=== PATIENT | female | born 1950 | race Caucasian/White ===

== ENCOUNTER → 2017-11-15 | Day surgery (SDC) | payer BC ==
[~2017-11-15] MED LIST: Lactated Ringers 1,000 ML IV SCH; Ondansetron 4 MG/2 ML SDV IV ONE; Propofol 200 MG/20 ML SDV IV ONE
--- NOTE | 2017-11-15 15:24 | OR ---
DATE OF OPERATION: 11/15/2017 PREOPERATIVE DIAGNOSIS: SCREENING COLONOSCOPY. POSTOPERATIVE DIAGNOSIS: SCREENING COLONOSCOPY. SURGEON: Kt Peter MD PROCEDURE: FULL-LENGTH COLONOSCOPY WITH POLYP REMOVAL X1. 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 COMPLICATIONS: None. SPECIMEN: Rectal polyp, likely hyperplastic. FINDINGS: 1. Full-length colonoscopy. 2. Small hyperplastic polyp in rectum. RECOMMENDATIONS: Follow up colonoscopy, pending path report. INDICATIONS: The patient was seen for routine physical. She is due for a screening colonoscopy. DESCRIPTION OF PROCEDURE: The patient was prepped and draped, placed in the left lateral decubitus position. A lubricated Olympus colonoscope was inserted and easily advanced to the cecum. Direct visualization of the ileocecal valve and appendiceal orifice was accomplished. The bowel prep was fine. Upon withdrawal of the scope, throughout the entire length of the right transverse and descending colon, no abnormalities were seen. The sigmoid colon showed no signs of any polyps, masses, ulcerations, or bleeding sites. No vascular abnormalities or signs of colitis. There were no diverticula. In the rectal vault, the patient had 1 small, flat, hyperplastic-appearing polyp removed in its entirety with forceps. The retroflexion of scope showed no anal lesions. Air was suctioned and scope was removed without complication. COOPER/NELA /[id number]
== END ==
LOC: CC.SDS 11:31
PROVIDERS: ATTEND Family Medicine
DX: Z12.11 Encounter for screening for malignant neoplasm of colon (principal); K62.1 Rectal polyp; F41.8 Other specified anxiety disorders; I10 Essential (primary) hypertension; E03.9 Hypothyroidism, unspecified; Z79.899 Other long term (current) drug therapy
CPT/HCPCS: 45380; J2405; J2704; J7120

== ENCOUNTER → 2022-03-09 | Day surgery (SDC) | payer MEDICARE ==
[~2022-03-09] MED LIST changes: +Midazolam 1 MG/ML 2 ML SDV ONE; -Ondansetron 4 MG/2 ML SDV IV ONE; -Propofol 200 MG/20 ML SDV IV ONE; +Propofol 200 MG/20 ML SDV ONE; +ePHEDrine 50 MG/ML SDV ONE; +fentaNYL 100 MCG/2 ML SDV ONE
== END ==
LOC: CC.SDS 08:43
PROVIDERS: ATTEND Family Medicine
DX: Z12.11 Encounter for screening for malignant neoplasm of colon (principal); F32.A Depression, unspecified; I10 Essential (primary) hypertension; E03.9 Hypothyroidism, unspecified; M81.0 Age-related osteoporosis without current pathological fracture; N32.81 Overactive bladder; E66.9 Obesity, unspecified; Z86.010 Personal history of colon polyps; Z79.899 Other long term (current) drug therapy; Z98.890 Other specified postprocedural states; Z68.38 Body mass index [BMI] 38.0-38.9, adult
CPT/HCPCS: 00812; J2250; J2704; J3010; J7120

== ENCOUNTER 2025-07-17 10:34 | Emergency (ER) | payer MEDICARE ==
[2025-07-17 10:51] LABS: APPEARANCE,URINE CLEAR (CLEAR); GLUCOSE,URINE NEGATIVE (NEGATIVE); OCCULT BLOOD,URINE TRACE-INTACT (NEGATIVE)
[2025-07-17 10:52] LABS: BASOPHILS ABSOLUTE AUTO 0.03 10^3/uL (0.00-0.50); BASOPHILS PERCENT AUTO 0.3 % (0-1); EOSINOPHILS ABSOLUTE AUTO 0.04 10^3/uL (0.00-1.50); EOSINOPHILS PERCENT AUTO 0.4 % (0-6); IMMATURE GRAN ABSOLUTE AUTO 0.01 10^3/uL (0.00-0.49); IMMATURE GRAN PERCENT AUTO 0.1 % (0.0-4.9); LYMPHOCYTES ABSOLUTE AUTO 1.13 10^3/uL (0.60-5.00); LYMPHOCYTES PERCENT AUTO 11.9 % (24-44); MONOCYTES ABSOLUTE AUTO 0.74 10^3/uL (0.00-1.50); MONOCYTES PERCENT AUTO 7.8 % (0-10); NEUTROPHILS ABSOLUTE AUTO 7.52 x10^3/uL (1.80-8.00); NEUTROPHILS PERCENT AUTO 79.5 % (41-71); PLATELET COUNT,PLT 163 10^3/uL (150-400); RED BLOOD CELL COUNT 4.31 x10^6/uL (4.00-5.50); WHITE BLOOD CELL COUNT,WBC 9.5 10^3/uL (4.0-11.0)
[2025-07-17 10:56] LABS: EPITHELIAL CELLS,URINE FEW /HPF (NOT SEEN)
[2025-07-17] MEDS: Ondansetron 4 MG/2 ML SDV IVPUSH PRN (11:02)
[2025-07-17 11:20] LABS: ALANINE AMINOTRANSFERASE,ALT 21.0 U/L (12-78); ASPARTATE AMNIOTRANSFERASE,AST 24.0 U/L (15-37); BILIRUBIN TOTAL 1.4 mg/dL (0.0-1.0); BLOOD UREA NITROGEN,BUN 32.0 mg/dL (7-18); CARBON DIOXIDE,CO2 23.0 mmol/L (21-32); CHLORIDE,CL 97.0 mEq/L (98-106); CREATININE 1.3 mg/dL (0.6-1.0); EST CRCL DRUG DOSING (CG) 30.48 mL/min; ESTIMATED GFR 43.0 mL/min (>=60); GLUCOSE RANDOM 94.0 mg/dL (75-99); POTASSIUM,K 3.7 mEq/L (3.5-5.0); PROTEIN TOTAL,TP 7.8 g/dL (6.4-8.2); SODIUM,NA 133.0 mEq/L (136-145)
[2025-07-17 11:21] LABS: TSH ULTRASENSITIVE 1.29 uIU/mL (0.36-5.60)
== END 2025-07-17 12:15 | disposition home or self-care (01) ==
LOC: CC.ED 10:34
DX: E86.0 Dehydration (principal); I10 Essential (primary) hypertension; E05.90 Thyrotoxicosis, unspecified without thyrotoxic crisis or storm; Z79.899 Other long term (current) drug therapy; Z79.890 Hormone replacement therapy
CPT/HCPCS: 36415; 80053; 81001; 84443; 85025; 96361; 96374; 99284; 99284-25; J2405; J7030